=== PATIENT | male | born 1980 | race Two or more races ===

== ENCOUNTER 2020-09-01 19:05 | Emergency (ER) | payer MEDICAID, OTHER ==
[~2020-09-01] VITALS: Ht 177.8 cm; Wt 100.0 kg
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
--- NOTE | 2020-09-01 19:28 | NUR ---
ERP AT BEDSIDE
--- NOTE | 2020-09-01 20:20 | NUR ---
PT REFUSING XRAY "UNTIL I GET SOME FUCKING PAIN MEDS". ERP AWARE.
[2020-09-01] MEDS ORDERED: IBUPROFEN 800 MG TABLET ONE (20:33)
[2020-09-01] MEDS ORDERED: NAPROXEN 500 MG TABLET ONE (20:39)
--- NOTE | 2020-09-01 20:42 | NUR ---
PT REQUESTING PAIN MEDICATION. ERP AWARE AND PT MEDICATED PER EMAR. NO OTHER NEEDS AT THIS TIME. CALL LIGHT AND BELONGINGS WITHIN REACH. AWAITING IMAGING
--- NOTE | 2020-09-01 20:52 | NUR ---
PT TO IMAGING
[2020-09-01] MEDS ORDERED: IBUPROFEN 800 MG TABLET PO ONE (21:00)
[2020-09-01] MEDS ORDERED: NAPROXEN 500 MG TABLET PO ONE (21:00)
[2020-09-01 21:04] VITALS: BP 105/67
--- NOTE | 2020-09-01 22:05 | NUR ---
Patient given discharge instructions and they have confirmed that they understand the instructions. Patient ambulatory with use of cane
== END 2020-09-01 22:16 | disposition home or self-care (01) ==
LOC: ED 20:12
DX: S83.92XA Sprain of unspecified site of left knee, initial encounter (principal); S80.02XA Contusion of left knee, initial encounter; V49.49XA Driver injured in collision with other motor vehicles in traffic accident, initial encounter; Y93.89 Activity, other specified; Y92.89 Other specified places as the place of occurrence of the external cause; Y99.8 Other external cause status
CPT/HCPCS: 29505; 99283

== ENCOUNTER 2020-12-16 10:32 | Emergency (ER) | payer MEDICAID, OTHER ==
[~2020-12-16] VITALS: Ht 180.3 cm; Wt 107.2 kg
[2020-12-16 10:38] VITALS: BP 132/86
[2020-12-16] MEDS ORDERED: LIDOCAINE-MPF 1%, 5ML ONE (11:10)
[2020-12-16] MEDS ORDERED: OXYcodone/APAP 5/325MG TABLET ONE (11:56)
[2020-12-16] MEDS ORDERED: OXYcodone/APAP 5/325MG TABLET PO ONE (12:00)
== END 2020-12-16 12:08 | disposition home or self-care (01) ==
LOC: ED 12:00
DX: L02.212 Cutaneous abscess of back [any part, except buttock and flank] (principal)
CPT/HCPCS: 10060

== ENCOUNTER 2020-12-20 14:09 | Emergency (ER) | payer OTHER ==
--- NOTE | 2020-12-20 15:09 | NUR ---
vulcan crewmember: attempted to call pt for triage, no answer in lobby
--- NOTE | 2020-12-20 15:42 | NUR ---
database coordinator: attempted to call pt from lobby for triage, no answer in lobby
--- NOTE | 2020-12-20 16:22 | NUR ---
TRIAGE TECH: NIL
== END 2020-12-20 16:34 | disposition left against medical advice (07) ==
LOC: ED 14:30
DX: M54.6 Pain in thoracic spine (principal); Z53.21 Procedure and treatment not carried out due to patient leaving prior to being seen by health care provider

== ENCOUNTER 2020-12-21 10:28 | Emergency (ER) | payer MEDICAID ==
[~2020-12-21] VITALS: Ht 177.8 cm; Wt 107.2 kg
[2020-12-21 10:47] VITALS: BP 115/74
--- NOTE | 2020-12-21 11:24 | NUR ---
[facility] VISITED PT AT BEDSIDE, PT CLAIMED HE HAS INSURANCE.
== END 2020-12-21 11:51 | disposition home or self-care (01) ==
LOC: ED 11:45
DX: Z48.01 Encounter for change or removal of surgical wound dressing (principal)
CPT/HCPCS: 99282